=== PATIENT | male | born 1980 | race Caucasian/White ===

== ENCOUNTER 2017-02-28 15:39 | Emergency (ER) | payer OTHER ==
[~2017-02-28] VITALS: Ht 172.7 cm; Wt 69.1 kg
[2017-02-28 15:40] VITALS: BP 134/78; PULSE 68; RESP 16; O2SAT 98
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
[2017-02-28] MEDS ORDERED: TdaP Vaccine 0.5 mL Inj IM ONE (16:25)
[2017-02-28] MEDS ORDERED: Lidocaine 1%-Epi 1:100,000 50 mL Inj SUBQ ONE (16:30)
[2017-02-28] MEDS ORDERED: HYDR-4003 PO (17:15)
[2017-02-28] MEDS ORDERED: IBUP800T28 PO (17:15)
[2017-02-28 18:03] VITALS: BP 121/79; PULSE 58; RESP 16; O2SAT 100
== END 2017-02-28 18:05 | disposition home or self-care (01) ==
LOC: SED 15:39
DX: S22.31XA Fracture of one rib, right side, initial encounter for closed fracture (principal); S51.011A Laceration without foreign body of right elbow, initial encounter; V18.0XXA Pedal cycle driver injured in noncollision transport accident in nontraffic accident, initial encounter; Y93.55 Activity, bike riding; Y92.9 Unspecified place or not applicable; Y99.8 Other external cause status; Z23 Encounter for immunization
CPT/HCPCS: 64450; 90471; 90715; 96372; 99284; J1885